=== PATIENT | female | born 1950 | race Caucasian/White ===

== ENCOUNTER 2021-03-21 22:23 | Emergency (ER) | payer MEDICARE, SELFPAY ==
[2021-03-21 22:34] VITALS: BP 137/78; PULSE 78; RESP 16; O2SAT 97; BMI 20.5
[2021-03-21 22:37] VITALS: TEMP 36.7
--- NOTE | 2021-03-21 23:06 | ED.BURNSMOKE ---
HPI - Burn/Smoke Inhalation General Chief complaint: Burn/Smoke Inhalation Stated complaint: garcia Time Seen by Provider: 03/21/21 23:06 Source: patient Mode of arrival: EMS History of Present Illness HPI Narrative: This is a 70-year-old female, right-hand dominant, who underwent bilateral blepharoplasty earlier today and then went home to cook and due to obscured vision due to swelling after her surgery dropped hot oil onto the back of her left hand with a few drops landing on her right foot. Related Data Allergies Allergy/AdvReac Type Severity Reaction Status Date / Time No Known Allergies Allergy Unverified 07/01/20 18:56 [No Known Allergies*] Review of Systems Review of Systems: Pertinent positives and negatives as stated in HPI 10 point review of systems is otherwise negative. [facility] Past Medical History Source: nursing notes reviewed Medical History Hepatitis C Irritable bowel syndrome (IBS) Normal colonoscopy Small intestinal bacterial overgrowth Surgical History History of eyelid surgery Hx of cataract surgery Social History Social History Advance Directives: No Physical Exam Vital Signs: Vital Signs: Last Vital Signs Pulse 64 03/22/21 00:30 Resp 12 03/22/21 00:30 BP 143/89 H 03/22/21 00:30 Pulse Ox 100 03/22/21 00:30 Body Mass Index 20.5 VITAL SIGNS: Reviewed. GENERAL: Well developed, well nourished, in no acute distress. HEAD: Normocephalic/atraumatic EYES: PERRLA, EOMI with extensive bilateral periorbital swelling and ecchymosis with noted sutures to bilateral upper lids consistent with surgical history OROPHARYNX: no oral lesions noted, posterior pharynx clear NECK: Supple, no adenopathy LUNGS: Normal breath sounds. No adventitious sounds or accessory muscle use. SpO2<97> CARDIOVASCULAR: Regular rate and rhythm without noted murmurs ABDOMEN: Soft, non-tender, non-distended with bowel sounds. LEFT HAND: EXTENSIVE BLISTERING NOTED TO THE DORSAL ASPECT OF FALL FOR DIGITS FROM MCP TO DIPs and appears to extend mildly into the interdigit spaces. RIGHT FOOT: There is 1 area of superficial blistering to the dorsal aspect of the ankle, 1 cm, and then a blister noted to the dorsum of the foot in between the great toe and 2nd toe with mild extension in between these 2 digits. There is no skin sloughing NEUROLOGIC: Alert and oriented x 4. Strength and sensation to light touch were grossly intact x 4. Course Course Course Narrative: 70-year-old female with history and clinical presentation consistent with oil garcia to the dorsum of the left hand as well as scattered areas of the right foot. Patient states that she has no support systems, transportation. Patient's wounds were dressed with bacitracin and Vaseline gauze and then wrapped with Kerlix gauze. Will refer patient to case management for further assistance in setting up transportation and coordinating with [facility] outpatient [facility]. Reevaluation(s) Reevaluation #1: Patient placed in physician observation because the patient needed to be seen in the morning by case management. At the time observation was started the patient's vital signs were stable, patient is alert and oriented, neuro: Nonfocal, CV RRR, lungs clear Time: 01:04 Discharge Plan Discharge Clinical Impression: Burn of hand, left, second degree, Burn of foot Patient Disposition: Home, Self-Care
--- NOTE | 2021-03-22 | PC.NURSE ---
Bacitracin cream applied to left hand/fingers 2nd degree burn, wrapped with sterile gauze as instructed by . This RN suggested Silvidene, however provider encouraged Bacitracin use only. Pt has bilateral eye swelling, bruising (purple/red), with stitches to eyelids from eyelid surgery earlier today. Pt reports that while at home after the surgery, she decided to pratt some shrimp in cooking oil, but couldn't see well due to the eye swelling from surgery, and then she accidentally burnt her left hand, with a few very small splatter spots noted on right foot while frying shrimp. No garcia noted elsewhere. Pt called EMS and then went to [facility] for treatment, but left without treatment. Pt then went to [facility] to self-treat garcia, where she began crying to a bystander, who happened to be an [employer] chief. The [employer] Chief called the ambulance for the patient, who requested to be taken to [facility] because [facility] never treats me good. They're horrible. They didn't do anything so I left. Pt has 20g IV access to left AC, placed by EMS prior to arrival. Ambulates with steady gait, witnessed by this RN. No labs at this time. Pt lives alone at home, does not have family that can help care for her. Case management order to be placed for evaluation in the morning/day shift, with follow up with [facility]. Pt requested and given ice/cool compress for eye swelling/pain. Will continue to monitor. Burn assessment: Blistering 2nd degree garcia noted to posterior aspect of four fingers on left hand (index, middle, ring, and pinky fingers). Clear/yellow in color with some rdz areas noted. Oil/grease noted to hand, dabbed off with gauze by this RN and . A few very small droplet sized blistered 2nd degree burn spots noted to top of left foot also, bacitracin applied but open to air. Pt denies complaints to this area.
[2021-03-22 00:30] VITALS: BP 143/89; PULSE 64; RESP 12; O2SAT 100
--- NOTE | 2021-03-22 07:00 | PC.NURSE ---
First contact with patient. Pt is resting quietly in bed with eyes closed in no distress. Bandage remains intact on left hand.
[2021-03-22 07:40] VITALS: BP 152/84; PULSE 71; RESP 16; O2SAT 97
--- NOTE | 2021-03-22 07:40 | PC.NURSE ---
Patient is ambulatory to the bathroom and back unassisted. No difficulty ambulating noted. Pt is alert and oriented. Icepack given for postop bilateral eye swelling
--- NOTE | 2021-03-22 10:00 | MHC.CM.ED ---
Addendum entered by Florina Rodriguez 03/22/21 10:29: Patient's PCP is Dr Heather Isaac at [facility]. Patient has not received the Covid vaccine and has no HCP. Original Note: Received case management consult overnight. Patient had eye surgery on 03/21. Went home and burned her left hand and right foot while cooking. [facility] wound care center is able to see patient on 03/24/2021 at 9am. Patient does not have transportation. Transportation booked by T/W with [facility] at [phone]. They will pick patient up at her apartment at 7:45am and pick her up from the Wound Care Center at 10:15am. Spoke with Coby at [facility]. They will authorize [facility] for wound care. Per Dr Hughes, dressing changes should be done twice a day and have bacitracin applied. T/W met with patient to provide all of this information. Patient very upset that her eye surgeon hasn't been contacted. T/W tried to redirect patient multiple times to complete discharge planning. Attempted multiple times to provide emotional support. Unable to console patient at this time. Dr Hughes, Alpa RN and Jackson RN aware. Continue to monitor for d/c needs.
--- NOTE | 2021-03-22 10:34 | PC.NURSE ---
PT EXITED TO THE WR TEARFUL AND VERY UPSET. SHE REPORTS FEELING DISRESPECTED BY CASE MANAGEMENT. SHE IS CHALLENGING TO GET TO REDIRECT AND EXPRESS HER CURRENT NEEDS AND HAVE HER UNDERSTAND THE PLAN OF CARE THAT HAS BEEN PUT IN PLACE BY CASE MANAGEMENT FOR HER FOLLOW UP CARE. SHE IS AWAITING A CHAIR VAN FOR TRANSPORT HOME. SHE HAS A DRESSING IN PLACE ON HER HAND
--- NOTE | 2021-03-23 12:12 | MHC.CM.ED ---
Late entry from 03/22/2021 at 16:00: Enzo PARKER was not able to see patient before . Referral broadcasted in [employer]. No agency that is contracted with [facility] has availability in [place]. Enzo PARKER re-consulted. They will be able to see the patient on Sunday, as long as the dressing changes are daily.
== END 2021-03-22 11:29 | disposition home or self-care (01) ==
PROVIDERS: Emergency Provider Student in an Organized Health Care Education/Training Program
DX: T23.202A Burn of second degree of left hand, unspecified site, initial encounter (principal); T25.221A Burn of second degree of right foot, initial encounter; T31.0 Burns involving less than 10% of body surface; M79.642 Pain in left hand; M79.671 Pain in right foot; X10.2XXA Contact with fats and cooking oils, initial encounter; Y93.G3 Activity, cooking and baking; Y92.000 Kitchen of unspecified non-institutional (private) residence as the place of occurrence of the external cause; Y99.9 Unspecified external cause status
CPT/HCPCS: 99284

== ENCOUNTER 2021-03-24 08:37 | Outpatient (RCR) | payer MEDICARE, SELFPAY | END 2021-06-29 15:41 | disposition home or self-care (01) | LOC: HO.WCC 08:37 | PROVIDERS: Visit Provider Surgery | DX: T23.242A Burn of second degree of multiple left fingers (nail), including thumb, initial encounter (principal); T25.221D Burn of second degree of right foot, subsequent encounter; T31.0 Burns involving less than 10% of body surface; X10.2XXA Contact with fats and cooking oils, initial encounter | CPT/HCPCS: 16020; 99215 ==

== ENCOUNTER → 2021-04-04 14:10 | Outpatient (BNVA) | payer MEDICARE, SELFPAY | PROVIDERS: Visit Provider Orthopaedic Surgery | DX: T23.232A Burn of second degree of multiple left fingers (nail), not including thumb, initial encounter (principal) | CPT/HCPCS: 99202 ==